=== PATIENT | male | born 1980 | race Hispanic/Latino ===

== ENCOUNTER 2021-03-09 07:20 | Emergency (ER) | payer SELFPAY ==
[2021-03-09 07:47] VITALS: BP 123/65
[2021-03-09] MEDS ORDERED: KETOROLAC 30 MG/1 ML INJ IV ONE (08:26)
[2021-03-09] MEDS ORDERED: CLINDAMYCIN 600 MG/50 mL 600 MG/50 ML BAG IV ONE (08:26)
--- NOTE | 2021-03-09 08:27 | Emergency Department Report ---
- General Chief complaint: Skin/Abscess/Foreign Body Stated complaint: S BITES Time Seen by Provider: 03/09/21 08:26 Source: patient Mode of arrival: Ambulatory Limitations: No Limitations - History of Present Illness Initial comments: 40-year-old male presents to the ER for multiple red spots. Patient states that he was bit by a spider not too long ago and was treated with Bactrim and Keflex. Patient comes in today with right knee swelling with no abrasion or bite. Left lower leg red bumps and multiple bites on his upper arm and stomach. Patient denies any headache no nausea no vomiting no fever no chills. Patient denies any bedbugs in the house. 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 MD complaint: rash Onset/Timin -: days(s) Tetanus Up to Date: yes Location: LUE, RUE, R hand, LLE Severity: moderate Severity scale (0 -10): 5 Quality: stabbing, aching Consistency: intermittent Improves with: none Worsens with: palpation, movement Associated symptoms: denies other symptoms Treatments Prior to Arrival: other (Keflex and Bactrim) - Related Data Previous Rx's Medication Instructions Recorded Last Taken Type Clindamycin [Clindamycin CAP] 300 mg PO Q8H 10 Days #30 cap 03/09/21 Unknown Rx Doxycycline Hyclate [Doxycycline 100 mg PO Q12HR 10 Days #20 tab 03/09/21 Unknown Rx Hyclate TAB] Ibuprofen [Motrin 800 MG tab] 800 mg PO Q8HR PRN #30 tablet 03/09/21 Unknown Rx Allergies Allergy/AdvReac Type Severity Reaction Status Date / Time No Known Allergies Allergy Unverified 03/09/21 07:46 Abscess Boil HPI - HPI Chief Complaint: Skin/Abscess/Foreign Body Stated Complaint: S BITES Time Seen by Provider: 03/09/21 08:26 Home Medications: Previous Rx's Medication Instructions Recorded Last Taken Type Clindamycin [Clindamycin CAP] 300 mg PO Q8H 10 Days #30 cap 03/09/21 Unknown Rx Doxycycline Hyclate [Doxycycline 100 mg PO Q12HR 10 Days #20 tab 03/09/21 Unknown Rx Hyclate TAB] Ibuprofen [Motrin 800 MG tab] 800 mg PO Q8HR PRN #30 tablet 03/09/21 Unknown Rx Allergies/Adverse Reactions: Allergies Allergy/AdvReac Type Severity Reaction Status Date / Time No Known Allergies Allergy Unverified 03/09/21 07:46 ED Review of Systems ROS: Stated complaint: S BITES Other details as noted in HPI Comment: All other systems reviewed and negative ED Past Medical Hx - Past Medical History Previous Medical History?: No - Surgical History Past Surgical History?: No - Medications Home Medications: Home Medications Medication Instructions Recorded Confirmed Last Taken Type Clindamycin [Clindamycin CAP] 300 mg PO Q8H 10 Days #30 cap 03/09/21 Unknown Rx Doxycycline Hyclate [Doxycycline 100 mg PO Q12HR 10 Days #20 tab 03/09/21 Unknown Rx Hyclate TAB] Ibuprofen [Motrin 800 MG tab] 800 mg PO Q8HR PRN #30 tablet 03/09/21 Unknown Rx ED Physical Exam - General Limitations: No Limitations General appearance: alert, in no apparent distress - Head Head exam: Present: atraumatic, normocephalic - Eye Eye exam: Present: normal appearance - ENT ENT exam: Present: normal exam, normal external ear exam - Neck Neck exam: Present: normal inspection, full ROM - Respiratory Respiratory exam: Absent: respiratory distress, accessory muscle use - Cardiovascular Cardiovascular Exam: Present: regular rate - Extremities Exam Extremities exam: Present: full ROM - Expanded Lower Extremity Exam Right Hip exam: Present: normal inspection Upper Leg exam: Present: normal inspection Knee exam: Present: full ROM, tenderness, swelling, abrasion Lower Leg exam: Present: normal inspection Ankle exam: Present: normal inspection Foot/Toe exam: Present: normal inspection Gait: Positive: observed and normal Left Hip exam: Present: normal inspection Upper Leg exam: Present: normal inspection Knee exam: Present: normal inspection, full ROM Lower Leg exam: Present: full ROM, tenderness (Distal anterior), swelling (Distal anterior), abrasion (Distal anterior) Gait: Positive: observed and normal - Back Exam Back exam: Present: normal inspection - Neurological Exam Neurological exam: Present: alert, oriented X3, normal gait - Psychiatric Psychiatric exam: Present: normal affect, normal mood - Skin Skin exam: Present: rash, erythema, abrasion ED Course Vital Signs 03/09/21 07:46 Temperature 97.7 F Pulse Rate 74 Respiratory 16 Rate Blood Pressure 123/65 [Right] O2 Sat by Pulse 98 Oximetry ED Medical Decision Making - Medical Decision Making 40-year-old male presents to the ER for multiple red spots. Patient states that he was bit by a spider not too long ago and was treated with Bactrim and Keflex. Patient comes in today with right knee swelling with no abrasion or bite. Left lower leg red bumps and multiple bites on his upper arm and stomach. Patient denies any headache no nausea no vomiting no fever no chills. Patient denies any bedbugs in the house. 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 Patient is given IV clindamycin. Patient will be discharged home on clindamycin and doxy. Patient is to follow-up with a primary care provider. Tylenol or ibuprofen for pain. Critical care attestation.: If time is entered above; I have spent that time in minutes in the direct care of this critically ill patient, excluding procedure time. ED Disposition Clinical Impression: Staphylococcal infection of skin Disposition: [id number] TO HOME OR SELFCARE Is pt being admited?: No Does the pt Need Aspirin: No Condition: Stable Instructions: Antibiotic Medicine, Adult, [id number] Additional Instructions: Complete antibiotics as prescribed. Ibuprofen as needed for pain. Bathe with Dial soap. If you take a bath you can use a capsule full of bleach into your water. Increase your fluid intake avoid sun while taking medication and follow- up with a primary care provider. Prescriptions: Clindamycin [Clindamycin CAP] 300 mg PO Q8H 10 Days #30 cap Doxycycline Hyclate [Doxycycline Hyclate TAB] 100 mg PO Q12HR 10 Days #20 tab Ibuprofen [Motrin 800 MG tab] 800 mg PO Q8HR PRN #30 tablet PRN Reason: Pain , Severe (7-10) Referrals: PRIMARY CARE, [Primary Care Provider] - 3-5 Days [facility] [Provider Group] - 3-5 Days [facility] [Outside] - 3-5 Days Forms: Work/School Release Form(ED)
== END 2021-03-09 10:39 | disposition home or self-care (01) ==
LOC: ED 07:20
DX: L08.9 Local infection of the skin and subcutaneous tissue, unspecified (principal); Z79.899 Other long term (current) drug therapy
CPT/HCPCS: 96365; 96375; 99282; J1885